=== PATIENT | male | born 1995 | race Caucasian/White ===

== ENCOUNTER 2017-01-02 13:15 | Inpatient (IN) | payer OTHER ==
[~2017-01-02] VITALS: Ht 185.4 cm; Wt 103.9 kg
[2017-01-02 14:08] LABS: BASOPHIL % 0.2 % (0-2); PLATELET COUNT 257 x10^3mcL (130-400); RED CELL DISTRIBUTION WIDTH 13.2 % (11.5-14.5)
[2017-01-02 14:14] LABS: CALCIUM 9.4 mg/dL (8.5-10.1); CARBON DIOXIDE 24.7 mmol/L (21-32); CHLORIDE SERUM 104 mmol/L (98-107); GFR1 > 60 mL/min; GLUCOSE SERUM 115 mg/dL (74-106); POTASSIUM SERUM 3.8 mmol/L (3.5-5.1); SODIUM SERUM 141 mmol/L (136-145)
[2017-01-02 14:15] LABS: ALBUMIN 4.6 g/dL (3.4-5.0); ALKALINE PHOSPHATASE 108 U/L (46-116); ALT/SGPT 34 U/L (16-63); AST/SGOT 26 U/L (15-37)
[2017-01-02 14:16] LABS: TOTAL PROTEIN, SERUM 9.7 g/dL (6.4-8.2)
[2017-01-02 14:29] LABS: AMPHETAMINE QUAL UR NONE DETECTED (NEG <=1000)
[2017-01-02 18:21] VITALS: BP 143/108
[2017-01-02 18:26] LABS: CHOLESTEROL/HDL RATIO 2.4
[2017-01-02 18:37] LABS: FREE T4 1.01 ng/dL (0.76-1.46); FREE THYROXINE INDEX 2.6 ug/dL (1.4-4.5); T4(THYROXINE) 7.4 ug/dL (4.7-13.3)
[2017-01-02 18:47] LABS: MAGNESIUM 2.1 mg/dL (1.8-2.4); PHOSPHOROUS 3.6 mg/dL (2.5-4.9)
[2017-01-02 18:50] LABS: T3 TOTAL 1.05 ng/mL
[2017-01-02 19:44] VITALS: BP 147/90
[2017-01-02 21:00] LABS: UA SPECIFIC GRAVITY 1.025 (1.005-1.035); microscopic required? YES; urine erythrocyte TRACE (NEGATIVE)
[2017-01-02 22:11] VITALS: BP 122/89
[2017-01-03 05:36] VITALS: BP 131/88
[2017-01-03 10:35] VITALS: BP 144/91
[2017-01-03 13:55] VITALS: BP 150/98
[2017-01-03 14:46] VITALS: BP 150/98
[2017-01-03] MEDS ORDERED: ZIT250 PO (14:57)
[2017-01-03] MEDS ORDERED: COUGH100 MG/5 M PO (15:02)
[2017-01-03] MEDS ORDERED: LAC PO (15:40)
== END 2017-01-03 16:30 | disposition home or self-care (01) | DRG 918 ==
LOC: ED 13:15 → DU 15:41
PROVIDERS: Emergency Medicine; ADMIT Family Medicine
DX: T40.5X4A Poisoning by cocaine, undetermined, initial encounter (principal)
CPT/HCPCS: 83880; 84439; J2060; J2930; J7030; Q0092; Q9967